=== PATIENT | male | born 1980 | race Hispanic/Latino ===

== ENCOUNTER 2018-02-16 19:23 | Emergency (ER) | payer OTHER ==
[2018-02-16] MEDS ORDERED: PROCHLORPERAZINE EDISYLATE 10 MG/2 ML VIAL ONE (20:23)
[2018-02-16] MEDS ORDERED: DIPHENHYDRAMINE HCL 25 MG CAPSULE ONE (20:24)
[2018-02-16] MEDS ORDERED: KETOROLAC TROMETHAMINE 30MG/ML ONE (21:56)
== END 2018-02-16 22:21 | disposition home or self-care (01) ==
LOC: EDH 19:23
DX: R51 Headache (principal); H53.8 Other visual disturbances; Z72.0 Tobacco use
CPT/HCPCS: 96374; 96375; 99284; J0780; J1885; Q0163

== ENCOUNTER 2021-06-01 23:52 | Emergency (ER) | payer MEDICAID | END 2021-06-01 23:53 | disposition left against medical advice (07) | LOC: EDH 23:52 | DX: R51.9 Headache, unspecified (principal); Z53.21 Procedure and treatment not carried out due to patient leaving prior to being seen by health care provider ==

== ENCOUNTER 2022-01-31 18:54 | Emergency (ER) | payer MEDICAID, OTHER ==
[~2022-01-31] VITALS: Ht 167.6 cm; Wt 72.6 kg
[2022-01-31 19:21] VITALS: BP 128/75
[2022-01-31] MEDS: KETOROLAC 15MG/ML VIAL (15MG/ML) IM ONE (20:00)
[2022-01-31] MEDS: CYCLOBENZAPRINE HCL 10 MG TABLET PO ONE (20:00)
[2022-01-31] MEDS ORDERED: KETO10TA2 PO (20:08)
[2022-01-31] MEDS ORDERED: CYCL5TAB PO (20:08)
[2022-01-31] MEDS: KETOROLAC 15MG/ML VIAL (15MG/ML) ONE (20:25)
[2022-01-31] MEDS: CYCLOBENZAPRINE HCL 10 MG TABLET ONE (20:25)
== END 2022-01-31 20:27 | disposition home or self-care (01) ==
LOC: EDH 18:54
DX: M54.41 Lumbago with sciatica, right side (principal); Z79.1 Long term (current) use of non-steroidal anti-inflammatories (NSAID)
CPT/HCPCS: 99283; 96372; J1885